=== PATIENT | male | born 1955 | race Caucasian/White ===

== ENCOUNTER 2021-09-06 12:45 | Inpatient (IN) | payer MEDICAID, SELFPAY ==
[~2021-09-06] VITALS: Ht 157.5 cm; Wt 45.8 kg
[2021-09-06 12:52] VITALS: BP 169/87
--- NOTE | 2021-09-06 12:52 | NUR ---
PT TO AWAIT IN LOBBY
--- NOTE | 2021-09-06 13:28 | NUR ---
PT AMBULATED TO ER BED 9
--- NOTE | 2021-09-06 13:40 | NUR ---
BLOOD COLLECTED BY LAB
--- NOTE | 2021-09-06 13:47 | NUR ---
RADIOLOGY AT BEDSIDE
[2021-09-06 13:52] LABS: BASOPHILS # (AUTO) 0.1 K/uL (0.00-0.22); BASOPHILS % (AUTO) 0.5 % (0.0-2.0); EOSINOPHILS # (AUTO) 0.7 K/uL (0-0.4); EOSINOPHILS % (AUTO) 5.2 % (0.0-4.0); HEMATOCRIT 34.4 % (36-52); HEMOGLOBIN 11.6 g/dL (12.0-18.0); LYMPHOCYTES # (AUTO) 0.1 K/uL (2.0-11.5); MEAN CORPUSCULAR HEMOGLOBIN 28 pg (27-31); MEAN CORPUSCULAR HGB CONC 34 g/dL (33-37); MEAN CORPUSCULAR VOLUME 82.2 fL (80-94); MONOCYTES # (AUTO) 0.4 K/uL (0.8-1.0); MONOCYTES % (AUTO) 2.9 % (1.7-9.3); NEUTROPHILS # (AUTO) 12.3 K/uL (1.8-7.7); NEUTROPHILS % (AUTO) 90.4 % (42.2-75.2); PLATELET COUNT (AUTO) 207 K/uL (140-450); RED BLOOD CELL COUNT(AUTO) 4.19 MIL/uL (4.20-6.10); RED CELL DISTRIBUTION WIDTH 14.6 % (11.6-13.7); WHITE BLOOD COUNT (AUTO) 13.6 K/uL (4.8-10.8)
--- NOTE | 2021-09-06 13:56 | NUR ---
66/M C/O OF LOWER ABDOMINAL PAIN X3 DAYS, THAT RADIATES TO THE BACK OF THE NECK AND LEFT LEG. PATIENT STATES THE PAIN IS 8/10, AND SHARP AT THIS TIME. PMHX DENIES NKA MEDS DENIES
[2021-09-06 14:12] LABS: ALBUMIN 2.4 g/dL (3.4-5.0); ANION GAP 27.1 (8-16); POTASSIUM 5.1 mmol/L (3.5-5.1); TOTAL BILIRUBIN 0.7 mg/dL (0.0-1.0)
[2021-09-06 14:14] LABS: CREATININE 10.4 mg/dL (0.6-1.3)
--- NOTE | 2021-09-06 14:23 | NUR ---
FRANCISCO COLLECTED AND WALKED TO LAB
[2021-09-06] MEDS ORDERED: cefTRIAXone 1,000 MG VIAL ONE (14:40)
--- NOTE | 2021-09-06 14:44 | NUR ---
Vandana wallace in [facility] - 09/06/21 at 1445 by MEDEDSONR Ultrasound at bedside.
[2021-09-06] MEDS ORDERED: ACETAMINOPHEN EXTRA STRENGTH 500 MG TAB PO ONE (14:50)
[2021-09-06] MEDS ORDERED: ACETAMINOPHEN 325 MG TAB PO PRN (14:55)
[2021-09-06] MEDS ORDERED: ONDANSETRON 4 MG/2 ML VIAL IVP PRN (14:55)
--- NOTE | 2021-09-06 15:06 | NUR ---
FC INSERTED USING STERILE TECHNIQUE
--- NOTE | 2021-09-06 15:40 | NUR ---
RECEIVED PATIENT FROM ER NURSE VIA PAULY. PT ADMITTED FOR CAROLA. PT IS AOX4, NAMIBIAN SPEAKING AND ABLE TO MAKE NEEDS KNOWN. RESPIRATIONS EVEN AND UNLABORED. ON ROOM AIR NO DISTRESS NOTED. SKIN IS WARM, DRY, AND INTACT. IV SITE ON LFA 18G. SALINE LOCKED. ABD IS SOFT, FLAT, AND NON-DISTENDED. BOWEL SOUNDS ACTIVE IN ALL QUADRANTS. COMPLAINS OF ABD PAIN 8/10. HAS STILES CATH IN PLACE. CLOUDY YELLOW URINE IN STILES BAG. PLAN OF CARE DISCUSSED. SAFETY PRECAUTIONS IN PLACE. CALL LIGHT WITHIN REACH. WILL CONTINUE TO MONITOR.
[2021-09-06 16:00] VITALS: BP 142/86
--- NOTE | 2021-09-06 18:04 | NUR ---
PATIENT TRANSPORTED TO RADIOLOGY FOR CT IMAGING
--- NOTE | 2021-09-06 19:07 | NUR ---
ENDORSED TO VISION THERAPIST NURSE FOR CONTINUITY OF CARE. PT IS STABLE.
[2021-09-06 19:13] LABS: APPEARANCE,URINE BLOODY (CLEAR); COLOR,URINE RED (YELLOW)
[2021-09-06 19:14] LABS: UGLUCOSE NEGATIVE (NEGATIVE)
[2021-09-06 19:15] LABS: BILIRUBIN,URINE 1+ (NEGATIVE)
[2021-09-06 19:16] LABS: BLOOD, URINE LARGE (NEGATIVE)
[2021-09-06 19:17] LABS: LEUKOCYTE ESTERASE ,URINE 3+ (NEGATIVE); NITRITE, URINE NEGATIVE (NEGATIVE)
[2021-09-06 19:20] LABS: RBC,URINE >100 /HPF (0-5)
[2021-09-06 19:21] LABS: WBC,URINE 80-100 /HPF (0-5)
[2021-09-06 20:04] VITALS: BP 127/75
[2021-09-06] MEDS: NACL 0.9% 1,000 ML IV SCH (20:17)
[2021-09-06 21:14] LABS: APPEARANCE,URINE BLOODY (CLEAR); COLOR,URINE RED (YELLOW)
[2021-09-06 21:15] LABS: BILIRUBIN,URINE 1+ (NEGATIVE); UGLUCOSE NEGATIVE (NEGATIVE)
[2021-09-06 21:16] LABS: BLOOD, URINE LARGE (NEGATIVE)
[2021-09-06 21:17] LABS: LEUKOCYTE ESTERASE ,URINE 3+ (NEGATIVE); NITRITE, URINE NEGATIVE (NEGATIVE)
[2021-09-06 21:23] LABS: RBC,URINE >100 /HPF (0-5); WBC,URINE 80-100 /HPF (0-5)
[2021-09-07] VITALS: BP 136/86
[2021-09-07 04:00] VITALS: BP 123/75
[2021-09-07] MEDS: NACL 0.9% 1,000 ML IV SCH ×2 (05:20→16:43)
[2021-09-07 06:16] LABS: BASOPHILS % (AUTO) 0.1 % (0.0-2.0); EOSINOPHILS % (AUTO) 0.3 % (0.0-4.0); HEMATOCRIT 33.1 % (36-52); LYMPHOCYTES # (AUTO) 0.4 K/uL (2.0-11.5); MEAN CORPUSCULAR HEMOGLOBIN 27 pg (27-31); MEAN CORPUSCULAR HGB CONC 33 g/dL (33-37); MEAN CORPUSCULAR VOLUME 81.7 fL (80-94); MONOCYTES # (AUTO) 1.2 K/uL (0.8-1.0); MONOCYTES % (AUTO) 8.3 % (1.7-9.3); NEUTROPHILS # (AUTO) 13.1 K/uL (1.8-7.7); PLATELET COUNT (AUTO) 213 K/uL (140-450); RED BLOOD CELL COUNT(AUTO) 4.06 MIL/uL (4.20-6.10); RED CELL DISTRIBUTION WIDTH 14.5 % (11.6-13.7); WHITE BLOOD COUNT (AUTO) 14.9 K/uL (4.8-10.8)
[2021-09-07 06:41] LABS: ALBUMIN 2.2 g/dL (3.4-5.0); ANION GAP 24.5 (8-16); CARBON DIOXIDE 14.7 mmol/L (21-32); MAGNESIUM 2.8 mg/dL (1.8-2.4); PHOSPHORUS 3.9 mg/dL (2.5-4.9); POTASSIUM 5.2 mmol/L (3.5-5.1); TOTAL BILIRUBIN 0.6 mg/dL (0.0-1.0)
[2021-09-07 07:00] LABS: NEUTROPHILS % (AUTO) 88.3 % (42.2-75.2)
--- NOTE | 2021-09-07 07:35 | NUR ---
RECEIVED PATIENT FROM NURSE FOR CONTINUITY OF CARE. PT IS AOX4, ESTONIAN SPEAKING AND ABLE TO MAKE NEEDS KNOWN. RESPIRATIONS EVEN AND UNLABORED. ON ROOM AIR NO DISTRESS NOTED. SKIN IS WARM, DRY, AND INTACT. IV SITE ON LFA 18G. INFUSING 0.45% NS AT 100 ML/HR. HAS STILES CATH IN PLACE. CLEAR YELLOW URINE IN STILES BAG. DENIES PAIN AT THE MOMENT. PLAN OF CARE DISCUSSED. SAFETY PRECAUTIONS IN PLACE. CALL LIGHT WITHIN REACH. WILL CONTINUE TO MONITOR.
[2021-09-07 08:00] VITALS: BP 136/83
[2021-09-07 08:06] LABS: CREATININE 9.9 mg/dL (0.6-1.3)
[2021-09-07] MEDS: TAMSULOSIN 0.4 MG CAP PO SCH (08:45)
--- NOTE | 2021-09-07 09:00 | NUR ---
ALL SCHEDULED MEDS GIVEN. PT IS STABLE. NO DISTRESS NOTED. WILL CONTINUE TO MONITOR.
[2021-09-07 12:00] VITALS: BP 130/76
[2021-09-07] MEDS ORDERED: ALBUMIN HUMAN 25% 50 ML IV ONE (12:05)
--- NOTE | 2021-09-07 12:35 | NUR ---
DR. ROMEO AT BEDSIDE. OBTAINED CONSENT FOR XR NEPHROSTOMY TUBE PLACEMENT. PT VERBALIZED UNDERSTANDING AND SIGN CONSENT FORM.
--- NOTE | 2021-09-07 15:10 | NUR ---
CHECKED ON PATIENT. PT IS SLEEPING. NO DISTRESS NOTED. WILL CONTINUE TO MONITOR.
[2021-09-07 16:00] VITALS: BP 101/74
--- NOTE | 2021-09-07 17:45 | NUR ---
CHECKED ON PATIENT. PT IS SLEEPING. NO DISTRESS NOTED. WILL CONTINUE TO MONITOR.
--- NOTE | 2021-09-07 19:23 | NUR ---
ENDORSED TO CHANGE COORDINATOR NURSE FOR CONTINUITY OF CARE. PT IS STABLE.
--- NOTE | 2021-09-07 19:30 | NUR ---
RECEIVED BEDSIDE REPORT FROM DAY SHIFT RN FOR CONTINUITY OF CARE. PT IS SLEEPING COMFORTABLY AND IS ON RA. PT IS NOT IN ANY DISTRESS. BREATHING RHYTHMIC AND UNLABORED. IVF RUNNING PER MD ORDER. CALL LIGHT WITHIN REACH. ALL SAFETY MEASURES TAKEN. WILL CONTINUE TO MONITOR THE PT.
[2021-09-07 20:00] VITALS: BP 152/78
--- NOTE | 2021-09-07 23:00 | NUR ---
PT IS AWAKE ON HIS PHONE. PT IS NOT IN ANY DISTRESS AND HAS NO COMPLAINS AT THIS TIME. IVF RUNNING MD ORDER. FC DRAINING CLEAR YELLOW URINE. CALL LIGHT WITHIN REACH. ALL SAFETY MEASURES TAKEN. WILL CONTINUE TO MONITOR THE PT.
[2021-09-08] VITALS: BP 126/73
[2021-09-08] MEDS: NACL 0.9% 1,000 ML IV SCH ×2 (01:25→11:24)
--- NOTE | 2021-09-08 02:20 | NUR ---
PT IS SLEEPING IN BED COMFORTABLY. PT IS ON RA. IVF RUNNING PER MD ORDER. NOT IN ANY DISTRESS. BREATHING RHYTHMIC AND UNLABORED. CALL LIGHT WITHIN REACH. ALL SAFETY MEASURES TAKEN. WILL CONTINUE TO MONITOR THE PT.
[2021-09-08 04:00] VITALS: BP 127/66
[2021-09-08 05:11] LABS: BASOPHILS % (AUTO) 0.1 % (0.0-2.0); EOSINOPHILS # (AUTO) 0.1 K/uL (0-0.4); EOSINOPHILS % (AUTO) 0.6 % (0.0-4.0); HEMATOCRIT 27.2 % (36-52); LYMPHOCYTES # (AUTO) 0.5 K/uL (2.0-11.5); LYMPHOCYTES % (AUTO) 4.1 % (20.5-51.1); MEAN CORPUSCULAR HEMOGLOBIN 27 pg (27-31); MEAN CORPUSCULAR HGB CONC 33 g/dL (33-37); MONOCYTES # (AUTO) 1.8 K/uL (0.8-1.0); MONOCYTES % (AUTO) 13.7 % (1.7-9.3); NEUTROPHILS # (AUTO) 10.6 K/uL (1.8-7.7); NEUTROPHILS % (AUTO) 81.5 % (42.2-75.2); PLATELET COUNT (AUTO) 164 K/uL (140-450); RED BLOOD CELL COUNT(AUTO) 3.32 MIL/uL (4.20-6.10); RED CELL DISTRIBUTION WIDTH 14.8 % (11.6-13.7); WHITE BLOOD COUNT (AUTO) 12.9 K/uL (4.8-10.8)
[2021-09-08 05:27] LABS: ANION GAP 20.2 (8-16); CARBON DIOXIDE 15.4 mmol/L (21-32); POTASSIUM 5.6 mmol/L (3.5-5.1)
[2021-09-08 05:33] LABS: MAGNESIUM 2.5 mg/dL (1.8-2.4); PHOSPHORUS 4.4 mg/dL (2.5-4.9)
[2021-09-08 05:34] LABS: PROTHROMBIN TIME 10.2 secs (10.8-13.4)
[2021-09-08 05:35] LABS: CREATININE 9.3 mg/dL (0.6-1.3)
--- NOTE | 2021-09-08 07:20 | NUR ---
ENDORSED PT TO DAY SHIFT RN FOR CONTINUITY OF CARE. PT IS STABLE.
[2021-09-08 08:00] VITALS: BP 122/68
[2021-09-08] MEDS: TAMSULOSIN 0.4 MG CAP PO SCH (08:30)
--- NOTE | 2021-09-08 10:16 | NUR ---
SPOKE TO DR FIELDS - WHO STATED TO CANCEL NEPHROSTOMY AND CONSENT FOR CYSTOSCOPY BILATERAL URETERAL STENTS. DR ROMEO MADE AWARE. NUC MED SCHEDULED FOR 09/09/21
--- NOTE | 2021-09-08 10:30 | NUR ---
BLUE PHONE USED FOR [place] TRANSLATION TO OBTAIN CONSENT FOR SURGERY TODAY AT 4PM WITH DR FIELDS. PT AGREEABLE, FAMILY (GRANDDAUGHTER @[phone]) UPDATED ON POC.
[2021-09-08 12:00] VITALS: BP 122/66
--- NOTE | 2021-09-08 14:07 | NUR ---
09/08/21 RD INITIAL ASSESSMENT COMPLETED PLEASE REFER TO NUTRITION ASSESSMENT UNDER CARE ACTIVITY FOR ESTIMATED NUTRITIONAL NEEDS. 1. WHEN/IF MEDICALLY APPROPRIATE, RECOMMEND RENAL DIET 2. MONITOR NUTRITION-RELATED LABS 3. RD TO FOLLOW-UP 2-3 DAYS, HIGH RISK [address]BEL [address]LET[address]
[2021-09-08] MEDS: SODIUM BICARBONATE 8.4% 100 MEQ in DEXTROSE 5% 1,000 ML IV SCH (15:05)
[2021-09-08 16:00] VITALS: BP 134/70
--- NOTE | 2021-09-08 16:05 | NUR ---
PT OFF OF UNIT FOR SURGERY.
[2021-09-08] MEDS ORDERED: SEVOFLURANE 250 ML BTL INH ONE (16:30)
[2021-09-08] MEDS ORDERED: fentaNYL citrate 0.05 MG/ML VIAL ONE (16:31)
[2021-09-08] MEDS ORDERED: PROPOFOL 200 MG/20 ML VIAL IV ONE (16:34)
[2021-09-08] MEDS ORDERED: ePHEDrine 50 MG/ML VIAL ONE (17:05)
[2021-09-08] MEDS ORDERED: ONDANSETRON 4 MG/2 ML VIAL IVP PRN (17:15)
[2021-09-08] MEDS ORDERED: diphenhydrAMINE 50 MG/ML VIAL IVP PRN (17:15)
[2021-09-08] MEDS ORDERED: HYDROmorphone 1 MG/ML AMP IVP PRN (17:15)
[2021-09-08] MEDS ORDERED: LACTATED RINGERS 1,000 ML IV SCH (17:15)
[2021-09-08 18:50] VITALS: BP 146/76
--- NOTE | 2021-09-08 18:50 | NUR ---
PT RETURNED FROM SURGERY. STABLE, S/P L URETERAL STENT PLACED. SAFETY MEASURES MAINTAINED, CALL LIGHT WITHIN REACH, WILL CONTINUE TO MONITOR
--- NOTE | 2021-09-08 19:25 | NUR ---
RECEIVED PT FROM AM NURSE FOR CONTINUITY OF CARE. PT IS STABLE, ALL SAFETY MEASURES IN P;SABRINA
--- NOTE | 2021-09-08 21:30 | NUR ---
PT ASLEEP , BREATHING EVEN AND UNLABORED. [employer] [facility] CALLED ABOUT THE PT RENAL SCAN 09/09. PT WILL BE NPO POST MN.
[2021-09-09] VITALS: BP 146/78
--- NOTE | 2021-09-09 00:55 | NUR ---
PATIENT ASLEEP ,NO DISTRESS NOTED, ALL SAFETY MEASURES IN PLACE
--- NOTE | 2021-09-09 02:00 | NUR ---
PATIENT ASLEEP,NO DISTRESS NOTED,ALL SAFETY MEASURES IN PLACE
[2021-09-09 04:00] VITALS: BP 133/72
--- NOTE | 2021-09-09 04:00 | NUR ---
PATIENT SLEEPING ,NO SIGN OF DISTRESS NOTED,ALL SAFETY MEASURES IN PLACE
[2021-09-09] MEDS: SODIUM BICARBONATE 8.4% 100 MEQ in DEXTROSE 5% 1,000 ML IV SCH ×2 (04:38→17:54)
--- NOTE | 2021-09-09 06:00 | NUR ---
AWAKE IN BED ,BREATHING EVEN AND UNLABORED,NO SIGNS OF DISTRESS NOTED.
[2021-09-09 08:00] VITALS: BP 128/72
[2021-09-09] MEDS ORDERED: FUROSEMIDE 100 MG/10 ML VIAL IV SCH (09:00)
[2021-09-09] MEDS ORDERED: FUROSEMIDE 20 MG/2 ML VIAL IVP SCH (09:00)
[2021-09-09] MEDS: TAMSULOSIN 0.4 MG CAP PO SCH (09:05)
[2021-09-09 10:10] LABS: BASOPHILS # (AUTO) 0.1 K/uL (0.00-0.22); BASOPHILS % (AUTO) 0.5 % (0.0-2.0); EOSINOPHILS # (AUTO) 0.3 K/uL (0-0.4); EOSINOPHILS % (AUTO) 1.8 % (0.0-4.0); HEMATOCRIT 29.4 % (36-52); HEMOGLOBIN 9.6 g/dL (12.0-18.0); LYMPHOCYTES # (AUTO) 0.6 K/uL (2.0-11.5); LYMPHOCYTES % (AUTO) 4.3 % (20.5-51.1); MEAN CORPUSCULAR HEMOGLOBIN 27 pg (27-31); MEAN CORPUSCULAR HGB CONC 33 g/dL (33-37); MEAN CORPUSCULAR VOLUME 82.6 fL (80-94); MONOCYTES # (AUTO) 1.2 K/uL (0.8-1.0); MONOCYTES % (AUTO) 8.2 % (1.7-9.3); NEUTROPHILS # (AUTO) 12.5 K/uL (1.8-7.7); NEUTROPHILS % (AUTO) 85.2 % (42.2-75.2); PLATELET COUNT (AUTO) 166 K/uL (140-450); RED BLOOD CELL COUNT(AUTO) 3.56 MIL/uL (4.20-6.10); RED CELL DISTRIBUTION WIDTH 14.8 % (11.6-13.7)
[2021-09-09 10:22] LABS: ANION GAP 19.5 (8-16); CARBON DIOXIDE 19.4 mmol/L (21-32); POTASSIUM 4.9 mmol/L (3.5-5.1)
[2021-09-09 10:27] LABS: MAGNESIUM 2.3 mg/dL (1.8-2.4); PHOSPHORUS 4.8 mg/dL (2.5-4.9)
[2021-09-09 10:35] LABS: CREATININE 8.7 mg/dL (0.6-1.3)
[2021-09-09 10:45] LABS: WHITE BLOOD COUNT (AUTO) 14.6 K/uL (4.8-10.8)
[2021-09-09 12:00] VITALS: BP 143/83
--- NOTE | 2021-09-09 14:16 | NUR ---
DC PLANNING: THE PATIENT PRESENTED TO THE ED WITH C/O ABDOMINAL PAIN AND DYSURIA X SEVERAL DAYS. FINDINGS OF URINARY RETENTION AND ENLARGED PROSTATE WITH HYDRONEPHROSIS ON US, FC INSERTED. WBC'S 13.6 ON ADMISSION, CR. 10.4, ANION GAP 27.1. TO OR ON 09/08 FOR CYSTOSCOPY WITH PYELOGRAM AND LEFT URETERAL STENT PLACEMENT. FOLLOWED BY NEPHROLOGY, CARDIOLOGY AND UROLOGY, STARTED ON BICARB IV BECAUSE OF METABOLIC ACIDOSIS AND ROCEPHIN FOR UTI. CM SPOKE WITH THE PATIENT AT BEDSIDE WITH STAFF ACTING L D RN. CONFIRMED THE PATIENTS ADDRESS AND PHONE NUMBER PER HIS FACE SHEET. 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 NO DME OR H/O HOME HEALTH AND THE PATIENT HASN'T SEEN A PHYSICIAN OR HAD A PCP IN YEARS. HE HAS NEPHEWS WHO LIVE LOCALLY AND STATE THAT THE FRIENDS HE LIVES WITH CAN HELP HIM WITH POST DISCHARGE NEEDS. THE PATIENT HAS PRESUMPTIVE M/JOSSUE AND STATES THAT HE HASN'T APPLIED FOR FULL SCOPE M/JOSSUE IN THE PAST. 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 CM EMPHASIZED THE NEED FOR THE PATIENT TO HAVE PHYSICIAN FOLLOW UP ONCE HE DISCHARGES BECAUSE OF HIS CURRENT HEALTH ISSUES. AYAH WILL FOLLOW. Addendum: 09/09/21 at 1433 by Chula Rodarte CM Amended: Links added. Addendum: 09/10/21 at 1229 by Chula Rodarte CM DC PLANNING: CR DECREASED, 8.2 TODAY. NEPHRO CONTINUING IVF'S AND MONITORING, GAP CLOSING, TODAY AT 16.8. FC IN PLACE, DC PLANNING BASED ON IMPROVEMENT OF RENAL FUNCTIONS. CM WILL FOLLOW. Addendum: 09/11/21 at 1503 by Alexa Tadeo RN DC PLANNING: CREATININE STILL ELEVATED AT 4.7, NEPHRO AND UROLOGIST FOLLOWING EVENTUAL DIALYSIS, CONTINUE IV HYDRATION AND IV ABX ROCEPHIN. CM TO FOLLOW
[2021-09-09 16:00] VITALS: BP 118/83
[2021-09-09 20:00] VITALS: BP 141/80
[2021-09-10] VITALS: BP 118/80
[2021-09-10 04:00] VITALS: BP 133/78
[2021-09-10 05:28] LABS: BASOPHILS # (AUTO) 0.1 K/uL (0.00-0.22); BASOPHILS % (AUTO) 0.5 % (0.0-2.0); EOSINOPHILS # (AUTO) 0.5 K/uL (0-0.4); EOSINOPHILS % (AUTO) 4.1 % (0.0-4.0); HEMATOCRIT 25.1 % (36-52); HEMOGLOBIN 8.5 g/dL (12.0-18.0); LYMPHOCYTES # (AUTO) 0.9 K/uL (2.0-11.5); LYMPHOCYTES % (AUTO) 8.2 % (20.5-51.1); MEAN CORPUSCULAR HEMOGLOBIN 27 pg (27-31); MEAN CORPUSCULAR HGB CONC 34 g/dL (33-37); MEAN CORPUSCULAR VOLUME 80.5 fL (80-94); MONOCYTES # (AUTO) 1.1 K/uL (0.8-1.0); MONOCYTES % (AUTO) 9.7 % (1.7-9.3); NEUTROPHILS % (AUTO) 77.5 % (42.2-75.2); PLATELET COUNT (AUTO) 181 K/uL (140-450); RED BLOOD CELL COUNT(AUTO) 3.12 MIL/uL (4.20-6.10); RED CELL DISTRIBUTION WIDTH 14.3 % (11.6-13.7); WHITE BLOOD COUNT (AUTO) 11.6 K/uL (4.8-10.8)
[2021-09-10 05:39] LABS: ANION GAP 16.8 (8-16); CARBON DIOXIDE 23.4 mmol/L (21-32); POTASSIUM 4.2 mmol/L (3.5-5.1)
[2021-09-10 05:47] LABS: CREATININE 8.2 mg/dL (0.6-1.3)
[2021-09-10 08:00] VITALS: BP 147/79
[2021-09-10] MEDS: TAMSULOSIN 0.4 MG CAP PO SCH (10:24)
[2021-09-10] MEDS ORDERED: NACL 0.9% 1,000 ML IV SCH (10:30)
[2021-09-10] MEDS: NACL 0.45% 1,000 ML IV SCH (10:30)
--- NOTE | 2021-09-10 15:55 | NUR ---
09/10/21 RD FOLLOW UP COMPLETED PLEASE REFER TO NUTRITION ASSESSMENT UNDER CARE ACTIVITY FOR ESTIMATED NUTRITIONAL NEEDS. 1. CONTINUE WITH RENAL DIET TOLERATED 2. RECOMMEND ENSURE CLEAR TID PER RD PROTOCOL -WILL PROVIDE 720 KCAL AND 24 GM PROTEIN DAILY 3. MONITOR RENAL LABS 4. RD TO FOLLOW-UP 2-3 DAYS, HIGH RISK [address]BEL [address]
[2021-09-10 16:00] VITALS: BP 137/86
--- NOTE | 2021-09-10 19:20 | NUR ---
ENDORSED PT TO PATIENT COORDINATOR NURSE FOR CONTINUITY OF CARE.
--- NOTE | 2021-09-10 19:21 | NUR ---
RECD PATIENT RESTING IN BED, AWAKE, A/OX4. RESPIRATION EVEN AND UNLABORED. IV OF NS INFUSING AT 60 ML/HR, LEFT FOREARM G18. ON ROOM AIR, WATCHING TV. SAFETY MEASURES ENFORCED. SIDE RAILS UP, CALL LIGHT IN REACH. BED ON ALARM. INSTRUCTED TO CALL NURSE FOR HELP, VERBALIZED UNDERSTANDING. DENIES PAIN 0/10.
[2021-09-10 20:00] VITALS: BP 133/78
--- NOTE | 2021-09-10 20:00 | NUR ---
Patient's Plan of Care was discussed and reviewed with RADHA: KALPESH
--- NOTE | 2021-09-10 21:00 | NUR ---
RESTING IN BED, STILL AWAKE. WATCHING TV.
--- NOTE | 2021-09-11 | NUR ---
SLEEPING COMFORTABLY IN BED, RESPIRATION EVEN AND UNLABORED. CALL LIGHT IN REACH.
--- NOTE | 2021-09-11 03:00 | NUR ---
STILL SLEEPING COMFORTABLY IN BED.
[2021-09-11] MEDS: NACL 0.45% 1,000 ML IV SCH ×2 (03:10→19:48)
[2021-09-11 04:00] VITALS: BP 128/73
[2021-09-11 05:25] LABS: ANION GAP 15.6 (8-16); CARBON DIOXIDE 24.1 mmol/L (21-32); POTASSIUM 4.7 mmol/L (3.5-5.1)
[2021-09-11 05:27] LABS: CREATININE 7.4 mg/dL (0.6-1.3)
--- NOTE | 2021-09-11 05:30 | NUR ---
INQUIRED IF HE FEELS COLD, STATED HE IS OK, DOES NOT NEED A WARM BLANKET.
[2021-09-11 05:47] LABS: BASOPHILS # (AUTO) 0.1 K/uL (0.00-0.22); BASOPHILS % (AUTO) 0.5 % (0.0-2.0); EOSINOPHILS # (AUTO) 0.6 K/uL (0-0.4); EOSINOPHILS % (AUTO) 5.4 % (0.0-4.0); HEMATOCRIT 26.3 % (36-52); HEMOGLOBIN 8.7 g/dL (12.0-18.0); LYMPHOCYTES % (AUTO) 8.8 % (20.5-51.1); MEAN CORPUSCULAR HEMOGLOBIN 27 pg (27-31); MEAN CORPUSCULAR HGB CONC 33 g/dL (33-37); MEAN CORPUSCULAR VOLUME 80.9 fL (80-94); MONOCYTES # (AUTO) 1.1 K/uL (0.8-1.0); NEUTROPHILS # (AUTO) 8.9 K/uL (1.8-7.7); NEUTROPHILS % (AUTO) 76.3 % (42.2-75.2); PLATELET COUNT (AUTO) 204 K/uL (140-450); RED BLOOD CELL COUNT(AUTO) 3.25 MIL/uL (4.20-6.10); RED CELL DISTRIBUTION WIDTH 14.3 % (11.6-13.7); WHITE BLOOD COUNT (AUTO) 11.7 K/uL (4.8-10.8)
--- NOTE | 2021-09-11 07:25 | NUR ---
ENDORSED TO AM NURSE FOR CONTINUITY OF CARE.
--- NOTE | 2021-09-11 07:26 | NUR ---
RECEIVED BEDSIDE REPORT FROM SERVER SOFTWARE ENGINEER NURSE. PT RESTING. PT BREATHING IS EVEN AND UNLABORED. NO SIGNS OF DISTRESS NOTED. PT IS ON RA. PT IS STABLE.
[2021-09-11 08:00] VITALS: BP 128/75
[2021-09-11] MEDS: TAMSULOSIN 0.4 MG CAP PO SCH (09:25)
--- NOTE | 2021-09-11 12:00 | NUR ---
PT SLEEPING. STATES HE ONLY EATS A LITTLE BIT OF SOLID FOOD BUT DRINKS ALL LIQUIDS DUE TO APPETITE. PT BREATHING IS EVEN AND UNLABORED. NO SIGNS OF DISTRESS NOTED. PT IS ON RA. PT IS STABLE.
[2021-09-11 16:00] VITALS: BP 109/69
--- NOTE | 2021-09-11 16:03 | NUR ---
PT STATES HE FEELS TIRED. PT RESTING. PT BREATHING IS EVEN AND UNLABORED. NO SIGNS OF DISTRESS NOTED. PT IS ON RA. PT IS STABLE.
--- NOTE | 2021-09-11 18:21 | NUR ---
PT EATING DINNER. PT BREATHING IS EVEN AND UNLABORED. NO SIGNS OF DISTRESS NOTED. PT IS ON RA. PT IS STABLE.
--- NOTE | 2021-09-11 19:40 | NUR ---
ENDORSED TO MANAGER DATA WAREHOUSING NURSE FOR CONTINUITY OF CARE.
[2021-09-11 20:00] VITALS: BP 142/80
[2021-09-12 04:00] VITALS: BP 138/76
[2021-09-12 05:45] LABS: BASOPHILS # (AUTO) 0.1 K/uL (0.00-0.22); BASOPHILS % (AUTO) 0.7 % (0.0-2.0); EOSINOPHILS # (AUTO) 0.5 K/uL (0-0.4); EOSINOPHILS % (AUTO) 4.8 % (0.0-4.0); HEMATOCRIT 26.5 % (36-52); HEMOGLOBIN 8.7 g/dL (12.0-18.0); LYMPHOCYTES # (AUTO) 1.2 K/uL (2.0-11.5); LYMPHOCYTES % (AUTO) 10.4 % (20.5-51.1); MEAN CORPUSCULAR HEMOGLOBIN 27 pg (27-31); MEAN CORPUSCULAR HGB CONC 33 g/dL (33-37); MEAN CORPUSCULAR VOLUME 82.2 fL (80-94); MONOCYTES # (AUTO) 0.9 K/uL (0.8-1.0); MONOCYTES % (AUTO) 8.2 % (1.7-9.3); NEUTROPHILS # (AUTO) 8.5 K/uL (1.8-7.7); NEUTROPHILS % (AUTO) 75.9 % (42.2-75.2); PLATELET COUNT (AUTO) 206 K/uL (140-450); RED BLOOD CELL COUNT(AUTO) 3.23 MIL/uL (4.20-6.10); RED CELL DISTRIBUTION WIDTH 13.9 % (11.6-13.7); WHITE BLOOD COUNT (AUTO) 11.2 K/uL (4.8-10.8)
[2021-09-12 05:48] LABS: ANION GAP 17.1 (8-16); CARBON DIOXIDE 23.8 mmol/L (21-32); POTASSIUM 4.9 mmol/L (3.5-5.1)
[2021-09-12 05:49] LABS: MAGNESIUM 1.9 mg/dL (1.8-2.4); PHOSPHORUS 5.3 mg/dL (2.5-4.9)
[2021-09-12 05:50] LABS: CREATININE 6.7 mg/dL (0.6-1.3)
--- NOTE | 2021-09-12 07:30 | NUR ---
RECEIVED BEDSIDE REPORT FROM CLOTH MENDER NURSE. PT RESTING. PT BREATHING IS EVEN AND UNLABORED. NO SIGNS OF DISTRESS NOTED. PT IS ON RA. PT IS STABLE.
[2021-09-12 08:00] VITALS: BP 138/72
[2021-09-12] MEDS: TAMSULOSIN 0.4 MG CAP PO SCH (09:47)
--- NOTE | 2021-09-12 10:00 | NUR ---
NEPHRO HAS CLEARED THE PT RENALLY. STATED LONG UROLOGIST AND PCP ARE CLEARED WELL. PT RESTING. PT BREATHING IS EVEN AND UNLABORED. NO SIGNS OF DISTRESS NOTED. PT IS ON RA. PT IS STABLE.
[2021-09-12] MEDS: NACL 0.45% 1,000 ML IV SCH (12:30)
--- NOTE | 2021-09-12 13:54 | NUR ---
JUNO STILES PER . SINCE PT IS CLEARED BY NEPHRO DR ENGEL THIS MORNING.
--- NOTE | 2021-09-12 13:58 | NUR ---
09/12/21 RD FOLLOW UP COMPLETED PLEASE REFER TO NUTRITION ASSESSMENT UNDER CARE ACTIVITY FOR ESTIMATED NUTRITIONAL NEEDS. 1. CONTINUE WITH RENAL DIET TOLERATED 2. CONTINUE ENSURE CLEAR TID PER RD PROTOCOL -PROVIDES 720 KCAL AND 24 GM PROTEIN DAILY 3. MONITOR RENAL LABS 4. RD TO FOLLOW-UP 3-5 DAYS, MODERATE RISK CHARBEL FLETCH[address] RD
--- NOTE | 2021-09-12 14:37 | NUR ---
ENDORSED PT TO CARLOS LIN FOR CONTINUITY OF CARE. POC DISCUSSED.
--- NOTE | 2021-09-12 14:38 | NUR ---
RECEIVED REPORT FROM YESSY LIN. PT STABLE. AWAITING DC ORDER
[2021-09-12] MEDS ORDERED: TAMS0.4C96 PO (14:53)
[2021-09-12] MEDS ORDERED: TRAM50TA3 PO (14:56)
--- NOTE | 2021-09-12 17:30 | NUR ---
PT DISCHARGED HOME. NO S/S OF DISTRESS. IV REMOVED, CANULA INTACT. ID BAND REMOVED. ALL PROPERTY IN POSSESSIONS. ALL SAFETY MEASURES IN PLACE
== END 2021-09-12 17:30 | disposition home or self-care (01) | DRG 720 ==
LOC: MED 12:45 → MTU 15:03
PROVIDERS: ADMIT Student in an Organized Health Care Education/Training Program; ATTEND Student in an Organized Health Care Education/Training Program
PROC: BT1F1ZZ Fluoroscopy of Left Kidney, Ureter and Bladder using Low Osmolar Contrast (ICD-10-PCS; 2021-09-08)
PROC: 0T778DZ Dilation of Left Ureter with Intraluminal Device, Via Natural or Artificial Opening Endoscopic (ICD-10-PCS; principal; 2021-09-08 16:30)
DX: A41.51 Sepsis due to Escherichia coli [E. coli] (principal); E43 Unspecified severe protein-calorie malnutrition; E87.2 Acidosis; N17.9 Acute kidney failure, unspecified; E87.8 Other disorders of electrolyte and fluid balance, not elsewhere classified; E87.1 Hypo-osmolality and hyponatremia; E86.0 Dehydration; Z20.822 Contact with and (suspected) exposure to COVID-19; N13.6 Pyonephrosis; D64.9 Anemia, unspecified; R73.9 Hyperglycemia, unspecified; E87.5 Hyperkalemia; Z68.1 Body mass index [BMI] 19.9 or less, adult
CPT/HCPCS: 36415; 71045; 76700; 78707; 80048; 80053; 81001; 83036; 83690; 83735; 84100; 84443; 84484; 85025; 85610; 85730; 87040; 87081; 87086; 93005; 96365; 99291; A9562; C1769; C2617; J0696; J1940; J2704; J3010; J3490; J7060; J7120; P9046; Q0092

== ENCOUNTER 2021-10-11 21:42 | Inpatient (IN) | payer MEDICAID, OTHER, SELFPAY ==
[~2021-10-11] VITALS: Ht 172.7 cm; Wt 49.9 kg
[~2021-10-11 21:42] MED LIST: TAMS0.4C96 PO; TRAM50TA3 PO
[2021-10-11 22:02] VITALS: BP 130/83
--- NOTE | 2021-10-11 22:12 | NUR ---
PT TAKEN TO BED 10
--- NOTE | 2021-10-11 22:13 | NUR ---
Dr. Escalera examining patient.
--- NOTE | 2021-10-11 22:25 | NUR ---
BLADDER SCAN DONE AT BEDSIDE WITH DR. CASTRO. RESULTS: 384ml of urine present.
--- NOTE | 2021-10-11 22:45 | NUR ---
PT TAKEN TO CT
--- NOTE | 2021-10-11 22:54 | NUR ---
PT RETURN FROM CT
[2021-10-11] MEDS ORDERED: cefTRIAXone 2,000 MG in DEXTROSE 5% 100 ML IV ONE (23:40)
[2021-10-11] MEDS ORDERED: HYDROcodone/APAP 5/325 MG 1 TAB TAB PO PRN (23:55)
[2021-10-11] MEDS ORDERED: MORPHINE SULFATE 4 MG/ML SYR IVP PRN (23:55)
[2021-10-11] MEDS ORDERED: cefTRIAXone 2,000 MG VIAL ONE (23:57)
[2021-10-12] MEDS ORDERED: ONDANSETRON 4 MG/2 ML VIAL IVP PRN
[2021-10-12 00:01] LABS: BILIRUBIN,URINE NEGATIVE (NEGATIVE); BLOOD, URINE 1+ (NEGATIVE); COLOR,URINE YELLOW (YELLOW); LEUKOCYTE ESTERASE ,URINE 3+ (NEGATIVE); NITRITE, URINE NEGATIVE (NEGATIVE); UGLUCOSE NEGATIVE (NEGATIVE)
[2021-10-12 00:03] LABS: APPEARANCE,URINE TURBID (CLEAR)
[2021-10-12 00:05] LABS: RBC,URINE 0-5 /HPF (0-5); WBC,URINE TOO MANY TO COUNT /HPF (0-5)
--- NOTE | 2021-10-12 00:24 | NUR ---
labs and covid swab done and sent to lab
[2021-10-12 00:31] LABS: BASOPHILS # (AUTO) 0.1 K/uL (0.00-0.22); BASOPHILS % (AUTO) 0.7 % (0.0-2.0); EOSINOPHILS # (AUTO) 0.3 K/uL (0-0.4); EOSINOPHILS % (AUTO) 1.9 % (0.0-4.0); HEMATOCRIT 29.2 % (36-52); HEMOGLOBIN 9.8 g/dL (12.0-18.0); LYMPHOCYTES # (AUTO) 0.9 K/uL (2.0-11.5); LYMPHOCYTES % (AUTO) 5.3 % (20.5-51.1); MEAN CORPUSCULAR HEMOGLOBIN 27 pg (27-31); MEAN CORPUSCULAR HGB CONC 34 g/dL (33-37); MEAN CORPUSCULAR VOLUME 79.7 fL (80-94); MONOCYTES # (AUTO) 1.4 K/uL (0.8-1.0); MONOCYTES % (AUTO) 8.4 % (1.7-9.3); NEUTROPHILS # (AUTO) 13.5 K/uL (1.8-7.7); PLATELET COUNT (AUTO) 360 K/uL (140-450); RED BLOOD CELL COUNT(AUTO) 3.66 MIL/uL (4.20-6.10); RED CELL DISTRIBUTION WIDTH 14.3 % (11.6-13.7); WHITE BLOOD COUNT (AUTO) 16.2 K/uL (4.8-10.8)
[2021-10-12 00:42] LABS: NEUTROPHILS % (AUTO) 83.7 % (42.2-75.2)
[2021-10-12 00:49] LABS: ALBUMIN 2.7 g/dL (3.4-5.0); TOTAL BILIRUBIN 0.3 mg/dL (0.0-1.0)
[2021-10-12 00:52] LABS: CREATININE 7.3 mg/dL (0.6-1.3)
[2021-10-12] MEDS ORDERED: NACL 0.9% 1,000 ML IV ONE (00:55)
--- NOTE | 2021-10-12 01:11 | NUR ---
BUN [address] CASTRO MADE AWARE. STILES INSERTED PER DR. CASTRO'S ORDERS AND 1LITER OF NORMAL SALINE INTITIATED.
--- NOTE | 2021-10-12 01:14 | NUR ---
Patient will be admitted to care of DR. SALDANA. Admited to MEDICAL/SURGICAL. Will go to room 111b. Belongings list completed. Report to Escobar. pt is awake, alert, and ambulatory. Tsang catheter in place secured to right leg, draining cloudy yellow urine. 18g on right forearm w/ 1L of normal saline infusing. no signs of infiltration. pt transferred with stable vitals. Arm band in place.
--- NOTE | 2021-10-12 02:00 | NUR ---
PATIENT ARRIVED VIA WHEELCHAIR. ADMITTED WITH ABDOMINAL PAIN, PATIENT IS ALERT , STILES CATH IN PLACE.NO DISTRESS NOTED
--- NOTE | 2021-10-12 02:30 | NUR ---
PT COMPLAINED OF ABD PAIN OF 8/10. MORPHINE SULFATE GIVEN .
[2021-10-12 04:00] VITALS: BP 118/76
--- NOTE | 2021-10-12 04:00 | NUR ---
PATIENT SLEEPING ,BREATHING EVEN AND UNLABORED,NO DISTRESS NOTED
--- NOTE | 2021-10-12 06:00 | NUR ---
PATIENT STILL ASLEEP ,RESPIRATION EVEN AND UNLABORED,NO DISTRESS NOTED.
--- NOTE | 2021-10-12 07:33 | NUR ---
ENDORSED PT TO AM NURSE FOR CONTINUITY OF CARE. PT IS STABLE.
--- NOTE | 2021-10-12 07:35 | NUR ---
RECEIVED BEDSIDE REPORT FROM DINING ROOM CAPTAIN FOR CONTINUITY OF CARE. PT IS AOX4, ABLE TO MAKE NEEDS KNOWN. RESPIRATIONS EVEN AND UNLABORED. ON ROOM AIR AND NO DISTRESS NOTED. SKIN IS WARM, DRY AND INTACT. IV SITE ON RFA 18 G SALINE LOCKED. INTACT AND PATENT. STILES CATHETER IN PLACE DRAINING YELLOW URINE. PLAN OF CARE DISCUSSED. SAFETY PRECAUTIONS IN PLACE. CALL LIGHT WITHIN REACH. WILL CONTINUE TO MONITOR.
[2021-10-12 08:00] VITALS: BP 116/73
--- NOTE | 2021-10-12 09:06 | NUR ---
ALL SCHEDULED MEDS GIVEN. PT IS STABLE. NO DISTRESS NOTED. WILL CONTINUE TO MONITOR.
[2021-10-12] MEDS ORDERED: MORPHINE SULFATE 2 MG/ML SYR IVP PRN (09:10)
--- NOTE | 2021-10-12 10:45 | NUR ---
DR. TUCKER AT PATIENT'S BEDSIDE.
[2021-10-12] MEDS ORDERED: ONDANSETRON 4 MG/2 ML VIAL IM/IVP PRN (11:15)
[2021-10-12] MEDS ORDERED: ACETAMINOPHEN 325 MG TAB PO PRN (11:15)
[2021-10-12] MEDS ORDERED: DOCUSATE SODIUM 100 MG GELCAP PO PRN (11:15)
[2021-10-12] MEDS ORDERED: POTASSIUM CHLORIDE 10 MEQ TABER PO PRN (11:15)
[2021-10-12] MEDS ORDERED: guaiFENesin DM 200/20 MG-10 ML 10 ML UDC PO PRN (11:15)
[2021-10-12] MEDS ORDERED: HYDROcodone/APAP 7.5/325 MG 1 TAB PO PRN (11:15)
[2021-10-12] MEDS ORDERED: ZOLPIDEM 5 MG TAB PO PRN (11:15)
[2021-10-12] MEDS: NACL 0.9% 1,000 ML IV SCH ×2 (11:51→21:18)
[2021-10-12 13:20] LABS: PROTHROMBIN TIME 10.6 secs (10.8-13.4)
[2021-10-12 13:41] LABS: AMYLASE 114 U/L (25-115); CHOL/HDL RATIO 4.3 (1-4.5); FREE T4 (FREE THYROXINE) 1.12 ng/dL (0.76-1.46); HDL CHOLESTEROL 31 mg/dL (40-60); LDL (CALC) 86 mg/dL (60-100); LIPASE 193 U/L (73-393); TRIGLYCERIDES 84 mg/dL (30-150)
--- NOTE | 2021-10-12 13:50 | NUR ---
CHECKED ON PATIENT. PT IS STABLE. NO DISTRESS NOTED. WILL CONTINUE TO MONITOR
[2021-10-12 16:00] VITALS: BP 99/64
--- NOTE | 2021-10-12 17:15 | NUR ---
CHECKED ON PATIENT. PT IS STABLE. NO DISTRESS NOTED. WILL CONTINUE TO MONITOR.
--- NOTE | 2021-10-12 19:14 | NUR ---
ENDORSED TO THIMBLE PRESS OPERATOR NURSE FOR CONTINUITY OF CARE. PT IS STABLE.
--- NOTE | 2021-10-12 19:20 | NUR ---
RECEIVED PATIENT FROM AM NURSE FOR CONTINUITY OF CARE. PT IS STABLE, IV INTACT AND PATENT,STILES CATH IN PLACE.
[2021-10-12 20:00] VITALS: BP 92/61
--- NOTE | 2021-10-12 21:00 | NUR ---
FIRST DOSE OF ROCEPHIN ADMINISTERD IVPB, NO ADVERSE REACTIONS NOTED
--- NOTE | 2021-10-13 | NUR ---
PATIENT SLEEPING ,RESPIRATIONS EVEN AND UNLABORED ,NO DISTRESS NOTED
--- NOTE | 2021-10-13 02:00 | NUR ---
ASSISTED PATIENT TO THE BATHROOM TO HAVE A BOWEL MOVEMENT. NO SOB NOTED
[2021-10-13 04:00] VITALS: BP 114/74
--- NOTE | 2021-10-13 04:00 | NUR ---
PATIENT SLEEPING AT THIS TIME, BREATHING EVEN AND UNLABORED,NO DISTRESS NOTED.
--- NOTE | 2021-10-13 06:00 | NUR ---
SLEEPING COMFORTABLY ,BREATHING EVEN AND UNLABORED ,NO DISTRESS NOTED.
[2021-10-13] MEDS: NACL 0.9% 1,000 ML IV SCH ×2 (06:44→17:28)
[2021-10-13 07:08] LABS: BASOPHILS # (AUTO) 0.1 K/uL (0.00-0.22); BASOPHILS % (AUTO) 0.8 % (0.0-2.0); EOSINOPHILS # (AUTO) 0.5 K/uL (0-0.4); EOSINOPHILS % (AUTO) 5.1 % (0.0-4.0); HEMATOCRIT 25.4 % (36-52); HEMOGLOBIN 8.3 g/dL (12.0-18.0); LYMPHOCYTES # (AUTO) 0.8 K/uL (2.0-11.5); LYMPHOCYTES % (AUTO) 8.3 % (20.5-51.1); MEAN CORPUSCULAR HEMOGLOBIN 27 pg (27-31); MEAN CORPUSCULAR HGB CONC 33 g/dL (33-37); MEAN CORPUSCULAR VOLUME 81.6 fL (80-94); MONOCYTES # (AUTO) 0.8 K/uL (0.8-1.0); MONOCYTES % (AUTO) 8.3 % (1.7-9.3); NEUTROPHILS # (AUTO) 7.9 K/uL (1.8-7.7); NEUTROPHILS % (AUTO) 77.5 % (42.2-75.2); PLATELET COUNT (AUTO) 298 K/uL (140-450); RED BLOOD CELL COUNT(AUTO) 3.11 MIL/uL (4.20-6.10); RED CELL DISTRIBUTION WIDTH 14.6 % (11.6-13.7); WHITE BLOOD COUNT (AUTO) 10.2 K/uL (4.8-10.8)
[2021-10-13 07:12] LABS: ANION GAP 20.5 (8-16); CARBON DIOXIDE 15.3 mmol/L (21-32); POTASSIUM 4.8 mmol/L (3.5-5.1)
[2021-10-13 07:18] LABS: CREATININE 5.8 mg/dL (0.6-1.3)
--- NOTE | 2021-10-13 07:28 | NUR ---
RECEIVED REPORT FROM AIRLINE FLIGHT ATTENDANT NURSE FOR CONTINUITY OF CARE. PT IN BED RESTING AT THIS TIME. RESPIRATIONS ARE EVEN AND UNLABORED ON ROOM AIR. NO SIGNS OF DISTRESS NOTED. PT IS ALERT AND ORIENTED X4 ABLE TO VERBALIZE NEEDS, MALAYSIAN SPEAKING ONLY. PT IS ON CARDIAC DIET, ABD IS NONTENDER, NONDISTENDED WITH BOWEL SOUNDS PRESENT. PT HAS IV TO RFA 18G. PT IS STILES CATHETER IN PLACE, DRAINING YELLOW FLUID. INTACT AND PATENT. CALL LIGHT WITHIN REACH. ALL SAFETY MEASURES IN PLACE. WILL CONTINUE TO MONITOR.
[2021-10-13 08:00] VITALS: BP 122/69
[2021-10-13 08:07] LABS: T4 (THYROXINE) 7.3 ug/dL (4.5-12.0)
[2021-10-13] MEDS: PANTOPRAZOLE 40 MG TABEC PO SCH (08:31)
--- NOTE | 2021-10-13 08:33 | NUR ---
ADMINISTERED ALL SCHEDULED MEDICATIONS. EDUCATED PT ON MEDS ADMINISTERED. ANSWERED ALL QUESTIONS. WILL CONTINUE TO MONITOR.
[2021-10-13] MEDS: TAMSULOSIN 0.4 MG CAP PO SCH (10:08)
[2021-10-13] MEDS: FINASTERIDE 5 MG TAB PO SCH (10:09)
--- NOTE | 2021-10-13 11:14 | NUR ---
PATIENT HAS BEEN SCREENED AND CATEGORIZED HIGH NUTRITION RISK. PATIENT WILL BE SEEN WITHIN 1-2 DAYS OF ADMISSION. 10/13/[address]
--- NOTE | 2021-10-13 12:16 | NUR ---
DID ROUNDS ON PT. PT RESTING AT THIS TIME. RESPIRATIONS ARE EVEN AND UNLABORED. ON ROOM AIR. NO SIGNS OF PAIN OR DISCOMFORT. WILL CONTINUE TO MONITOR.
--- NOTE | 2021-10-13 14:20 | NUR ---
DC PLANNIN YRS OLD MALE PATIENT WAS ADMITTED FROM HOME WITH A DX OF BLADDER OUTLET OBSTRUCTION, UTI . PT HAS A HX OF OBSTRUCTIVE UROPATHY , LEFT URETERAL STENT PLACEMENT. CXR SHOWED NO ACUTE CARDIOPULMONARY DISEASE. CT ABD/PELVIS SHOWED MODERATED LEFT HYDRONEPHROSIS WITH URETERAL STENT IN PLACE. RAPID COVID TEST NEGATIVE. ADMINISTERED IVF, IV ABX ROCEPHIN AND CONTINUED HOME MEDS. CONSULTED WITH TIMBER TRIMMER AND UROLOGIST. DC PLAN TO GO HOME WHEN STABLE. CM TO FOLLOW
[2021-10-13 16:00] VITALS: BP 117/66
--- NOTE | 2021-10-13 16:16 | NUR ---
DID ROUNDS ON PT. PT INQUIRING REGARDING VISITING HOURS AND POLICY. INFORMED PT. PT ALSO ASKING IF POSSIBILITY OF HIM DISCHARGING HOME TODAY. INFORMED PT THAT I WILL KEEP HIM INFORMED OF PLAN OF CARE. WILL CONTINUE TO MONITOR.
--- NOTE | 2021-10-13 16:56 | NUR ---
10/13/21 RD INITIAL ASSESSMENT COMPLETED PLEASE REFER TO NUTRITION ASSESSMENT UNDER CARE ACTIVITY FOR ESTIMATED NUTRITIONAL NEEDS. 1. RECOMMEND RENAL DIET 2. RECOMMEND NEPRO BID PER RD PROTOCOL 3. MONITOR WEIGHT CHANGES 4. RD TO FOLLOW-UP 2-3 DAYS, HIGH RISK CHARBEL FLETCHER, RD
--- NOTE | 2021-10-13 19:27 | NUR ---
ENDORSED PT TO CORN SHELLER NURSE FOR CONTINUITY OF CARE. ALL NEEDS MET THROUGHOUT SHIFT. PT IS STABLE.
--- NOTE | 2021-10-13 19:28 | NUR ---
RECEIVED REPORT FROM JOSE ANGEL GARCIA FOR CONTINUITY OF CARE. PATIENT WAS OBSERVED IN BED ON ROOM AIR. BREATHING OBSERVED EVEN AND UNLABORED NO S/S OF RESPIRATORY DISTRESS.IV SITE CLEAN AND PATENT ON LEFT FOREARM 18GAGE WITH NORMAL SALINE AT 100ML/PER HOUR. SKIN INTACT. STILES CATH IN PLACE DUE TO BLADDER OBSTRUCTION DX. IT WAS REPORTED THAT SKIN IS INTACT. ALL SAFETY MEASURE ARE AVAILABLE. BED LOWERED CALL LIGHT IN REACH. PATIENT WAS ENCOURAGED TO CALL FOR ASSISTANCE FOR ANY NEEDS/ASSISTANCE. JOSE ANGEL GARCIA TRANSLATED THIS IN [place] BEFORE LEAVING THE SHIFT. WILL CONTINUE TO MONITOR. [email or web address]
--- NOTE | 2021-10-13 19:30 | NUR ---
PATIENT PLAN OF CARE DISCUSSED AND REVIEWED WITH RADHA HUGHES.
--- NOTE | 2021-10-13 22:00 | NUR ---
PATIENT IS IN BED ASLEEP WITHOUT RESPIRATORY DISTRESS. ALL MEDICATION HAVE BEEN GIVEN. SIDE RAILS UP AND BED IS AT THE LOWEST LEVEL. NURSING WILL CONTINUE TO MONITOR. [email or web address]
--- NOTE | 2021-10-14 02:00 | NUR ---
PATIENT ASLEEP AT THIS TIME. VISIBLE CHEST RISE AND FALL NOTED. NOT IN ANY DISTRESS. WILL CONTINUE POC.
[2021-10-14 04:00] VITALS: BP 127/60
[2021-10-14] MEDS: NACL 0.9% 1,000 ML IV SCH ×2 (04:20→14:09)
--- NOTE | 2021-10-14 05:41 | NUR ---
PATIENT REMAINS IN BED. ROOM AIR WITH CHEST RISING ANS FALLING EVENLY. NO NOTED DISTRESS. NURSING WILL CONTINUE TO MONITOR FOR SAFETY. [email or web address]
[2021-10-14 06:31] LABS: BASOPHILS # (AUTO) 0.1 K/uL (0.00-0.22); BASOPHILS % (AUTO) 1.2 % (0.0-2.0); EOSINOPHILS # (AUTO) 0.7 K/uL (0-0.4); EOSINOPHILS % (AUTO) 7.6 % (0.0-4.0); HEMATOCRIT 25.5 % (36-52); HEMOGLOBIN 8.3 g/dL (12.0-18.0); LYMPHOCYTES % (AUTO) 10.1 % (20.5-51.1); MEAN CORPUSCULAR HEMOGLOBIN 26 pg (27-31); MEAN CORPUSCULAR HGB CONC 33 g/dL (33-37); MEAN CORPUSCULAR VOLUME 80.8 fL (80-94); MONOCYTES # (AUTO) 0.8 K/uL (0.8-1.0); MONOCYTES % (AUTO) 8.2 % (1.7-9.3); NEUTROPHILS % (AUTO) 72.9 % (42.2-75.2); PLATELET COUNT (AUTO) 308 K/uL (140-450); RED BLOOD CELL COUNT(AUTO) 3.16 MIL/uL (4.20-6.10); RED CELL DISTRIBUTION WIDTH 14.7 % (11.6-13.7); WHITE BLOOD COUNT (AUTO) 9.5 K/uL (4.8-10.8)
--- NOTE | 2021-10-14 06:51 | NUR ---
NO ACUTE EVENT THROUGHOUT THE NIGHT. PATIENT STABLE. NO SIGN AND SYMPTOMS OF DISTRESS NOTED AT THIS TIME. NO COMPLAIN FROM THE PATIENT. ALL NEEDS ATTENDED. CALL LIGHT WITHIN REACH. WILL ENDORSE THE PATIENT TO THE ONCOMING RN FOR CONTINUITY OF CARE.
[2021-10-14 06:53] LABS: CARBON DIOXIDE 15.7 mmol/L (21-32); POTASSIUM 4.7 mmol/L (3.5-5.1)
--- NOTE | 2021-10-14 07:22 | NUR ---
PATIENT ASLEEP NO DISTRESS NOTED BUT ABLE TO WAKE UP AND RESPONDS VERBALLY. RECEIVED REPORT FROM SOFTWARE MANAGER NURSE FOR CONTINUITY OF CARE.
--- NOTE | 2021-10-14 07:25 | NUR ---
ENDORSED PATIENT TO DAY NURSE FOR CONTINUITY OF CARE. PATIENT STABLE. SIGNING OFF.
[2021-10-14 07:46] LABS: CREATININE 5.2 mg/dL (0.6-1.3)
--- NOTE | 2021-10-14 07:50 | NUR ---
RECEIVED CRITICAL LAB RESULT OF BUN 81 AND CREATININE OF 5.16 DR. TUCKER MADE AWARE.
--- NOTE | 2021-10-14 07:54 | NUR ---
DR. FIELDS AT BED SIDE AND INFORM PATIENT AND I THAT PATIENT CAN GO WITH STILES CATHETER AND WILL FOLLOW UP WITH UROLOGY OUTPATIENT CLINIC.
[2021-10-14] MEDS: FINASTERIDE 5 MG TAB PO SCH (08:20)
[2021-10-14] MEDS: TAMSULOSIN 0.4 MG CAP PO SCH (08:20)
[2021-10-14] MEDS: PANTOPRAZOLE 40 MG TABEC PO SCH (08:21)
--- NOTE | 2021-10-14 08:23 | NUR ---
PATIENT ALERT ORIENTED EATING BREAKFAST. gIVEN ALL ORAL MEDICATION ORDER. TOLERATED WELL. CALL LIGHT WITH IN EASY REACH.
[2021-10-14] MEDS ORDERED: TAMSULOSIN 0.4 MG CAP PO SCH (08:30)
--- NOTE | 2021-10-14 09:24 | NUR ---
DR. TUCKER AT BED SIDE.
--- NOTE | 2021-10-14 11:30 | NUR ---
PATENT ON BED RESTING ALL SAFETY MEASURE IN PLACE.
[2021-10-14 12:00] VITALS: BP 118/79
--- NOTE | 2021-10-14 13:00 | NUR ---
PATIENT ALERT EATING LUNCH NO DISTRESS NOTED. CALL LIGHT WITH IN EASY REACH.
--- NOTE | 2021-10-14 13:30 | NUR ---
PATIENT ON STABLE CONDITION ON BED WATCHING TV. STILES CATHETER DRAINING CLEAR YELLOW URINE. NO HEMATURIA NOTED. NO FEVER OR CHILLS.
--- NOTE | 2021-10-14 15:14 | NUR ---
PATIENT ASLEEP NO DISTRESS NOTED. IV RUNNING AT 100 CC/HOUR TOLERATED WELL.
--- NOTE | 2021-10-14 16:00 | NUR ---
DC PLANNING PATIENT IS A 66-YEAR-OLD MALE ADMITTED ON 10/11/2021 AT [facility]/ED DUE TO WORSENING URINARY RETENTION AND HAVING SIGNIFICANT PAIN AND DISCOMFORT. PATIENT HAS HX. OF OBSTRUCTIVE UROPATHY LAST HOSPITALIZATION WAS ABOUT A MONTH AGO FOR SAME ISSUE. SW AND CM MET WITH PATIENT AT BEDSIDE TO DISCUSS AND GATHER PATIENT'S COLLATERAL INFORMATION. PATIENT WAS AWAKE AND ALERT ABLE TO PROVIDE HIS INFORMATION. PATIENT IS BRAZILIAN SPEAKING ONLY. PATIENT REPORTED LIVING AT HOME WITH HIS FRIEND SCARLET PACHECO AND HER DAUGHTER KEL KAHN WHO IS HIS FAMILY SUPPORT BESIDES HIS NEPHEW ZAYRA SKAGGS WHO IS HIS EMERGENCY CONTACT AND MEDICAL DESICION MAKER. PATIENT REPORTED BEEN ACTIVE AND INDEPENDENT OF LAST MONTH BEFORE HE GOT SICK FOR THE FIRST TIME IN A LONG TIME, PATIENT REPORTED WORKING AT A [employer] " [employer]" BUT HAVING TO STOP WORKING DUE TO HIS HOSPITALIZATION AND RECOVERY. PER PATIENT REPORTED SICK AT WORK AND WILL BE APPLYING FOR UNEMPLOYMENT AND MEDICAL SOON. PATIENT REPORTED HAVING ADVANCE DIRECTIVES IN PLACE ALREADY AND WAS NOT INTERESTED ON GETTING INFORMATION PACKET PROVIDED BY SW AT THE TIME OF VISIT. PATIENT REPORTED NOT HAVING OR NEEDING ANY DME AT HOME AND ALSO REPORTED HAVING NO ISSUES WITH GETTING OR TAKING ANY OF HIS MEDICATIONS. PATIENT REPORTED THAT HE GETS HIS MEDICATIONS FROM [facility] [place] NEAR HIS HOME. SW EXPLAINED TO PATIENT THE NEED TO FOLLOW UP WITH AN APPOINTMENT WITHIN 5-7 DAYS WITH HIS PCP AFTER DC FROM [facility], PATIENT AGREED AND STATED THAT HE WILL BE MAKING A FOLLOW UP APPOINTMENT; WITH PRIMARY DOCTOR DR. JACOB TUCKER AND BAR BACK DONNIE AND KIDNEY DOCTOR TORO, AFTER HE DISCHARGES FROM [facility]. PATIENT STATED THAT HIS FRIEND SCARLET OR HER DAUGHTER KEL WILL BE ASSISTING WITH TRANSPORTATION BACK HOME WHEN HE IS DC. SW WILL FOLLOW UP NEEDED.
--- NOTE | 2021-10-14 16:26 | NUR ---
DC PLANNING: THE PATIENT PRESENTED WITH URINE RETENTION AND DYSURIA. H/O RENAL STENT PLACEMENT, GIVEN ROCEPHIN AND MORPHINE IN ER, WBC'S 16.2, BUN 118, CR 7.3. CT ABD SHOWS MODERATE HYDRONEPHROSIS AND PROSTATOMEGALY. UROLOGY AND NEPHROLOGY CONSULTS ORDERED, STARTED ON ROCEPHIN IV. CM SPOKE WITH THE PATIENT AT BEDSIDE AND CONFIRMED HIS ADDRESS AND PHONE NUMBER. HE LIVES IN A SINGLE STORY HOUSE WITH FRIENDS AND RENTS A ROOM THERE. HE IS CURRENTLY NOT WORKING AND PLANS TO APPLY FOR DISABILITY. HE HAS ALREADY APPLIED FOR M/JOSSUE AND IS WAITING TO HEAR BACK FROM THE STATE. THE PATIENT WILL FOLLOW UP WITH DR TUCKER, DR ENGEL AND DR FIELDS ONCE HE'S DISCHARGED AND WILL KEEP THE FC IN. AYAH WILL FOLLOW. Addendum: 10/14/21 at 1636 by Chula Rodarte CM Amended: Links added.
[2021-10-14] MEDS: SODIUM BICARBONATE 8.4% 50 MEQ in NACL 0.45% 1,000 ML IV SCH (18:05)
--- NOTE | 2021-10-14 18:15 | NUR ---
DR. CASTREJON AT BED SIDE WITH NEW ORDER AND HE INFORM PATIENT OF PLAN OF CARE.
--- NOTE | 2021-10-14 19:19 | NUR ---
GAVE REPORT TO INJECTOR ASSEMBLER NURSE FOR CONTINUITY OF CARE.
[2021-10-14 20:00] VITALS: BP 100/65
--- NOTE | 2021-10-14 20:00 | NUR ---
PT REPORT RECEIVED. CARE ASSUMED. PT IS AWAKE, CALM. VITALS STABLE. NO DISTRESS, DENIES PAIN. WILL CONTINUE TO MONITOR.
--- NOTE | 2021-10-15 | NUR ---
PT SLEEPING. NO DISTRESS NOTED. WILL CONTINUE TO MONITOR.
[2021-10-15] MEDS: SODIUM BICARBONATE 8.4% 50 MEQ in NACL 0.45% 1,000 ML IV SCH ×2 (02:29→10:53)
--- NOTE | 2021-10-15 02:48 | NUR ---
PT ASLEEP. VISIBLE CHEST RISE AND FALL NOTED. NO S/SX OF DISTRESS NOTED. ALL PRECAUTIONS IN PLACE.CALL LIGHT WITHIN REACH. WILL CONTINUE TO MONITOR.
[2021-10-15 04:09] VITALS: BP 122/70
--- NOTE | 2021-10-15 05:17 | NUR ---
PT SLEEPING. NO DISTRESS. WILL CONTINUE TO MONITOR.
--- NOTE | 2021-10-15 07:07 | NUR ---
PT IS STABLE. NO ACUTE THROUGHOUT THE NIGHT. NO S/SX OF DISTRESS AT THIS MOMENT. NO COMPLAINS OF PAIN. ALL PRECAUTIONS IN PLACE. CALL LIGHT WITHIN REACH.WILL ENDORSE TO AM SHIFT NURSE.
--- NOTE | 2021-10-15 07:30 | NUR ---
RECEIVED BEDSIDE REPORT FROM LAND USE PLANNER NURSE FOR CONTINUITY OF CARE. PT IS AWAKE AND ALERT. A&OX4. ON RA WITH BREATHING UNLABORED. AMBULATORY INDEPENDENTLY. STILES CATH IN PLACE DRAINING URINE. SKIN IS WARM, DRY, AND INTACT. IV IS IN THE RIGHT FA 18 GAUGE INFUSING FLUIDS ORDERED. PT IS STABLE. PLAN OF CARE DISCUSSED.
[2021-10-15 07:35] LABS: BASOPHILS # (AUTO) 0.1 K/uL (0.00-0.22); BASOPHILS % (AUTO) 1.3 % (0.0-2.0); EOSINOPHILS # (AUTO) 0.7 K/uL (0-0.4); HEMATOCRIT 24.9 % (36-52); HEMOGLOBIN 8.3 g/dL (12.0-18.0); LYMPHOCYTES # (AUTO) 1.2 K/uL (2.0-11.5); LYMPHOCYTES % (AUTO) 13.1 % (20.5-51.1); MEAN CORPUSCULAR HEMOGLOBIN 27 pg (27-31); MEAN CORPUSCULAR HGB CONC 33 g/dL (33-37); MEAN CORPUSCULAR VOLUME 80.3 fL (80-94); MONOCYTES # (AUTO) 0.7 K/uL (0.8-1.0); MONOCYTES % (AUTO) 8.1 % (1.7-9.3); NEUTROPHILS # (AUTO) 6.4 K/uL (1.8-7.7); NEUTROPHILS % (AUTO) 69.5 % (42.2-75.2); PLATELET COUNT (AUTO) 326 K/uL (140-450); RED CELL DISTRIBUTION WIDTH 14.6 % (11.6-13.7); WHITE BLOOD COUNT (AUTO) 9.2 K/uL (4.8-10.8)
[2021-10-15 07:46] LABS: ANION GAP 19.4 (8-16); CARBON DIOXIDE 17.9 mmol/L (21-32); POTASSIUM 4.3 mmol/L (3.5-5.1)
[2021-10-15 07:51] LABS: CREATININE 4.6 mg/dL (0.6-1.3)
[2021-10-15] MEDS: TAMSULOSIN 0.4 MG CAP PO SCH (08:42)
[2021-10-15] MEDS: FINASTERIDE 5 MG TAB PO SCH (08:43)
[2021-10-15] MEDS: PANTOPRAZOLE 40 MG TABEC PO SCH (08:43)
--- NOTE | 2021-10-15 09:10 | NUR ---
PT WAS AWOKEN WHEN CALLED BY NAME. PT RESPONDING APPROPRIATELY TO QUESTIONS. NO DISTRESS NOTED. PT DENIES PAIN. WILL CONTINUE TO MONITOR.
[2021-10-15] MEDS ORDERED: FINA5TAB5 PO (10:19)
[2021-10-15] MEDS ORDERED: CIPR500T4 PO (10:19)
[2021-10-15] MEDS ORDERED: ACET-1182 PO (10:19)
[2021-10-15] MEDS ORDERED: TAMS0.4C96 PO (10:19)
[2021-10-15] MEDS ORDERED: ZOLP5TAB1 PO (10:19)
[2021-10-15] MEDS ORDERED: DEXT5SYR3 PO (10:19)
--- NOTE | 2021-10-15 11:03 | NUR ---
ROUNDED ON PT AND HE IS ASLEEP. NO DISTRESS NOTED. PT IS RESTING COMFORTABLY IN SEMI FOWLERS POSITION. PT STABLE. WILL MONITOR.
--- NOTE | 2021-10-15 13:30 | NUR ---
PT IS RESTING COMFORTABLY. NO DISTRESS NOTED. PT DENIES PAIN. STILES CATH IN PLACE. PT IS STABLE. WILL CONTINUE TO MONITOR.
[2021-10-15 13:47] VITALS: BP 141/83
--- NOTE | 2021-10-15 13:47 | NUR ---
[facility] CALLED TO SCHEDULE FOLLOW UP APPOINTMENT WITH DR. FIELDS. APPT SET FOR 1:30PM ON 10/22/21 AT [address] [facility] [place] [id number]. PHONE NUMBER [phone]. APPT REMINDER WAS GIVEN TO PATIENT WITH DATE, TIME, ADDRESS AND PHONE NUMBER.
--- NOTE | 2021-10-15 14:51 | NUR ---
[facility] CALLED TO SCHEDULE SINGING TEACHER FOLLOW UP WITH . SPOKE WITH IVAN FROM DR SARKIS. IVAN TO FOLLOW UP WITH PATIENT CURRENTLY SHOWS THAT MEDICAL IS IN PENDING STATUS. [facility] UNABLE TO MAKE APPT.
--- NOTE | 2021-10-15 15:53 | NUR ---
PT WAS PROVIDED EXTENSIVE DISCHARGE INSTRUCTIONS IN [place] BY STUDENT WORKING WITH ME. SPENT 35 MINUTES EXPLAINING D/C INSTRUCTIONS AND STILES CATH CARE. EXPLAINED WORSENING SIGNS AND SYMPTOMS WHEN TO RETURN TO THE ED. EXPLAINED MEDICATIONS AND INSTRUCTIONS. PT PROVIDED RETURN DEMONSTRATION WITH CATHETER CARE. PT VERBALIZED UNDERSTANDING. IV WAS REMOVED IN THE RIGHT AC. BLEEDING CONTROLLED. ID BAND WAS REMOVED. PROVIDED SUPPLIES TO TAKE CARE OF STILES CATHETER AT HOME AND PRINTED PT TEACHING. PT IS STABLE. VS ARE STABLE. WILL WAIT FOR RIDE TO HAND SALTER PT.
--- NOTE | 2021-10-15 16:05 | NUR ---
PT IS DISCHARGED FROM THE HOSPITAL WITH STILES CATH IN PLACE. PT IS STABLE. TAKEN OUT BY WHEELCHAIR TO CAR WHERE DAUGHTER AND GRANDDAUGHTER PICKED HIM UP.
== END 2021-10-15 16:05 | disposition home or self-care (01) | DRG 871 ==
LOC: MED 21:42 → MTU 23:56
PROVIDERS: ADMIT Hospitalist; ATTEND Hospitalist
DX: A41.9 Sepsis, unspecified organism (principal); E43 Unspecified severe protein-calorie malnutrition; N17.0 Acute kidney failure with tubular necrosis; Z68.1 Body mass index [BMI] 19.9 or less, adult; N13.6 Pyonephrosis; T83.193A Other mechanical complication of other urinary stent, initial encounter; N13.8 Other obstructive and reflux uropathy; N18.4 Chronic kidney disease, stage 4 (severe); N17.9 Acute kidney failure, unspecified; N40.1 Benign prostatic hyperplasia with lower urinary tract symptoms; R33.8 Other retention of urine; Y83.8 Other surgical procedures as the cause of abnormal reaction of the patient, or of later complication, without mention of misadventure at the time of the procedure; E87.6 Hypokalemia; Z20.822 Contact with and (suspected) exposure to COVID-19; Z87.442 Personal history of urinary calculi; Z79.899 Other long term (current) drug therapy; Y92.89 Other specified places as the place of occurrence of the external cause
CPT/HCPCS: 36415; 71045; 80048; 80053; 81001; 82150; 83036; 83690; 83735; 83880; 84100; 84154; 84436; 84439; 84443; 84479; 84484; 85025; 85610; 85730; 87081; 87086; 96374; 99285; J0696; J2270; J3490; J7060; Q0092